=== PATIENT | female | born 1985 | race Caucasian/White ===

== ENCOUNTER → 2016-09-09 | Outpatient (CLI) | payer OTHER ==
[~2016-09-09] MED LIST: ASPI-586 PO; DOCU100C37 PO; HYDR-3720 PO; IBUP-1780 PO; METF1000 PO; OXYC-12 PO; OXYC-272 PO; OXYC-465 PO; PREN1TAB39 PO
--- NOTE | 2016-09-09 12:12 | Diagnostic Imaging Report ---
PROCEDURE: US Gallbladder. TECHNIQUE: Multiple real-time grayscale images were obtained over the right upper quadrant in various projections. INDICATION: Right upper quadrant pain. FINDINGS: The liver appeared normal. There is no intra-or extrahepatic bile duct dilatation. The visualized portions of the pancreas are normal. The unobstructed right kidney is normal. Portal venous flow in the normal hepatopetal direction. The gallbladder is normal, no stone or sludge. There is no ascites. IMPRESSION: Normal right upper quadrant ultrasound. Dictated by: Dictated on workstation # [id number]
== END ==
LOC: RAD 06:49
PROVIDERS: ATTEND Obstetrics & Gynecology
DX: R10.11 Right upper quadrant pain (principal)
CPT/HCPCS: 76705

== ENCOUNTER 2017-02-25 10:40 | Outpatient (CLI) | payer OTHER ==
[~2017-02-25] VITALS: Ht 180.3 cm; Wt 94.3 kg
[2017-02-25] MEDS ORDERED: PREN-37 PO (11:03)
[2017-02-25] MEDS ORDERED: ASPI-999 PO (11:03)
[2017-02-25] MEDS ORDERED: METF1000 PO (11:03)
--- NOTE | 2017-02-27 12:11 | Physician Query-Final Dx ---
DACIA CAM 02/27/17 1211: Clinic Account Progress/Dx Physician Query: Please give diagnosis Date of Service Feb 25, 2017 at 10:40 FROY RIVERA MD 02/28/17 0721: Clinic Account Progress/Dx DIAGNOSIS: Diagnosis false labor DACIA CAM Feb 27, 2017 12:11 FROY RIVERA MD Feb 28, 2017 07:21
== END 2017-02-25 12:25 | disposition home or self-care (01) ==
LOC: LDRP 10:40 → WSo 10:40
PROVIDERS: ATTEND Obstetrics & Gynecology
DX: O47.03 False labor before 37 completed weeks of gestation, third trimester (principal); Z3A.34 34 weeks gestation of pregnancy
CPT/HCPCS: 99214

== ENCOUNTER 2017-03-09 12:04 | Inpatient (IN) | payer OTHER ==
[~2017-03-09] VITALS: Ht 180.3 cm; Wt 95.7 kg
[2017-03-09 12:00] VITALS: BP 118/72
[~2017-03-09 12:04] MED LIST changes: +ASPI-999 PO; +PREN-37 PO
[2017-03-09] MEDS ORDERED: D5 LR IV SOLUTION 1,000 ML IV SCH ×2 (13:00→17:21)
[2017-03-09] MEDS ORDERED: LACTATED RINGERS 1,000 ML IV ONE ×2 (13:00→18:55)
[2017-03-09 13:02] LABS: BASOPHILS % (AUTO) 0 % (0-10); EOSINOPHILS % (AUTO) 0 % (0-10); LYMPHOCYTES # (AUTO) 1.6 X 10^3 (1.0-4.0); LYMPHOCYTES % (AUTO) 16 % (12-44); MEAN CORPUSCULAR HEMOGLOBIN 32 PG (25-34); MEAN CORPUSCULAR HGB CONC 34 G/DL (32-36); MEAN CORPUSCULAR VOLUME 95 FL (80-99); MEAN PLATELET VOLUME 13.4 FL (7.4-10.4); MONOCYTES # (AUTO) 0.8 X 10^3 (0.0-1.0); MONOCYTES % (AUTO) 8 % (0-12); NEUTROPHILS # (AUTO) 7.9 X 10^3 (1.8-7.8); NEUTROPHILS % (AUTO) 76 % (42-75); PLATELET COUNT 95 10^3/uL (130-400); RED BLOOD COUNT 3.39 10^6/uL (4.35-5.85); RED CELL DISTRIBUTION WIDTH 13.3 % (10.0-14.5); WHITE BLOOD COUNT 10.3 10^3/uL (4.3-11.0)
[2017-03-09 17:09] VITALS: BP 126/78
[2017-03-09] MEDS ORDERED: LACTATED RINGERS 1,000 ML IV PRN (17:09)
[2017-03-09] MEDS ORDERED: METOCLOPRAMIDE INJ 10 MG/2 ML (REGLAN) IV ONE (17:15)
[2017-03-09] MEDS ORDERED: CATHETER FLUSH 10 ML SYR IV PRN (17:15)
[2017-03-09] MEDS ORDERED: FAMOTIDINE 20MG/2ML IV (PEPCID) IV ONE (17:15)
[2017-03-09] MEDS ORDERED: CITRIC ACID/SOB CIT (BICITRA) 30 ML UDC PO ONE (17:15)
[2017-03-09] MEDS ORDERED: ONDANSETRON 4 MG/2 ML (SDV) Z0FRAN IVP PRN ×2 (17:30→23:00)
[2017-03-09] MEDS ORDERED: ceFAZolin INJECTION 2,000 MG in NS (IVPB) 50 ML IV NR (17:30)
[2017-03-09] MEDS ORDERED: TETANUS,DIPTH,PERTUSS P/F (BOOSTRIX) 0.5 ML VIAL IM ONE (17:30)
[2017-03-09] MEDS ORDERED: MEASLES,MUMPS,RUBELLA 1 EA INJ SC ONE (17:30)
[2017-03-09] MEDS ORDERED: metroNIDAZOLE 500MG/100ML IVPB 100 ML IV NR (17:30)
[2017-03-09] MEDS ORDERED: MEPERIDINE (DEMEROL) INJ 100 MG/ML IM PRN (17:30)
[2017-03-09] MEDS ORDERED: ceFAZolin 2 GM/50 ML NS 50 ML ONE (17:30)
[2017-03-09] MEDS ORDERED: PROMETHAZINE INJ 25 MG/ML (PHENERGAN) AMP IM PRN (17:30)
[2017-03-09] MEDS ORDERED: D5 LR IV SOLUTION 1,000 ML IV ONE (17:31)
--- NOTE | 2017-03-09 17:31 | History & Physical ---
History and Physical Date Seen by Provider: Mar 09, 2017 Time Seen by Provider: 17:26 this patient is a 30-year-old A2 white female with an EDC of 12 [id number] putting her at 36-4/7 weeks' gestation. She has been seen frequently over the last several weeks for threatened labor. She has had fairly regular persistent contractions that have been in the range of 6-8/h sometimes more sometime last and have been lasting less than 30 seconds. Today she felt like her contractions were given she was evaluated in clinic and found to be bulmaro every 4 minutes lasting 45 seconds or so per contraction. She was sent to labor and delivery for evaluation. After hydration she is bulmaro every 2-3 minutes lasting 60-90 seconds she is feeling fairly significant severe pain in the lower pelvis particularly along the scar area. Her is complicated by gestational diabetes for which she is on metformin and had has good effect on her blood sugars. She also has a history of thrombocytopenia platelet count up to this date has been in the 100 100s 6 range today it is 95 on admission is also complicated by mild oligohydramnios. Last ultrasound was performed within the last few days showed a estimated weight of 10 pounds and 9 ounces which is at the upper range of the normal range for that gestational age. This patient has a history of having had large babies. He has culture has been performed but report is not available as of yet. Patient denies ruptured membranes or bleeding. allergies are none Medications are vitamins metformin 500 mg twice a day and Atarax when necessary itching Past medical history, past surgical history, obstetric history, social histories and family histories are present primarily HEENT exam is normal Neck supple no lymphadenopathy in the thyromegaly Abdomen gravid fundal height is quite large measuring 41 cm the abdomen is nontender. Extremities show no clubbing cyanosis. There is no Homans sign. Pelvic exam in my clinic this morning showed a cervix that was fingertip to less than 1 cm but then at [address] Repeat exam just now showed a cervix that generous centimeter dilated and effaced over 90 percent. Membranes were intact presentation vertex. monitor shows contractions every 2 minutes lasting 60-90 seconds the heart rate pattern is reassuring Lab is as follows Laboratory Tests Test 03/09/17 12:20 Range/Units White Blood Count 10.3 4.3-11.0 10^3/uL Red Blood Count 3.39 L 4.35-5.85 10^6/uL Hemoglobin 10.9 L 11.5-16.0 G/DL Hematocrit 32 L 35-52 % Mean Corpuscular Volume 95 80-99 FL Mean Corpuscular Hemoglobin 32 25-34 PG Mean Corpuscular Hemoglobin Concent 34 32-36 G/DL Red Cell Distribution Width 13.3 10.0-14.5 % Platelet Count 95 L 130-400 10^3/uL Mean Platelet Volume 13.4 H 7.4-10.4 FL Neutrophils (%) (Auto) 76 H 42-75 % Lymphocytes (%) (Auto) 16 12-44 % Monocytes (%) (Auto) 8 0-12 % Eosinophils (%) (Auto) 0 0-10 % Basophils (%) (Auto) 0 0-10 % Neutrophils # (Auto) 7.9 H 1.8-7.8 X 10^3 Lymphocytes # (Auto) 1.6 1.0-4.0 X 10^3 Monocytes # (Auto) 0.8 0.0-1.0 X 10^3 Eosinophils # (Auto) 0.0 0.0-0.3 10^3/uL Basophils # (Auto) 0.0 0.0-0.1 10^3/uL assessment and plan labor at 36-4/7 weeks' gestation in a patient with 3 previous C-sections and complicated by oligohydramnios thrombocytopenia macrosomia and gestational diabetes.. Plan is for admission now and proceed with repeat delivery.patient understands implications for . She understands there is a possibility that her baby could require supportive care including enough to transfer to a intensive care unit. labor at 36-4/7 weeks gestation with previous 3 Allergies and Home Medications Allergies Coded Allergies: No Known Drug Allergies (Unverified , 10/16/09) Home Medications Aspirin 81 Mg Tab.chew, 81 MG PO DAILY, (Reported) Metformin HCl 1,000 Mg Tablet, 1,000 MG PO BID, (Reported) Vit/Iron Fumarate/FA 1 Each Tablet, 1 EACH PO DAILY, (Reported) Clinical Quality Measures DVT/VTE Risk/Contraindication: Risk Factor Score Per Nursin RFS Level Per Nursing on Admit: 1=Low/No VTE PPX FROY RIVERA MD Mar 09, 2017 5:31 pm
--- OUTSIDE RECORDS SUMMARY | 2017-03-09 17:36 | XMS REPORT | Continuity of Care Document ---
Author Author [facility] Organization [facility] Address Unknown Phone Unavailable Allergies Active Description Code Type Severity Reaction Onset Reported/Identified Relationship to Patient Clinical Status Yes No Known Drug Allergies [id number] Drug Allergy Unknown N/ A 10/16/2009 Medications Problems Date Dx Coded Attending Type Code Diagnosis Diagnosed By 03/20/2014 FROY RIVERA MD, Ot 632 MISSED 03/24/2014 CARMELINA KRISHNAMURTHY MD Ot V22.1 08/07/2014 CARMELINA KRISHNAMURTHY MD Ot V22.1 08/07/2014 FROY RIVERA MD Ot 632 08/07/2014 FROY RIVERA MD Ot V72.84 08/07/2014 FROY RIVERA MD Ot 632 MISSED 07/27/2015 FROY RIVERA MD, Ot O34.21 MATERNAL CARE FOR SCAR FROM PREVIOUS TAYLOR 07/27/2015 FROY RIVERA MD Ot Z01.818 ENCOUNTER FOR OTHER PREPROCEDURAL EXAMIN 07/27/2015 FROY RIVERA MD, Ot Z11.2 ENCOUNTER FOR SCREENING FOR OTHER BACTER 07/27/2015 CARMELINA KRISHNAMURTHY MD Ot V22.1 SUPERVIS OTH NORMAL PREG 07/27/2015 FROY RIVERA MD Ot 632 MISSED 07/27/2015 FROY RIVERA MD, Ot V72.84 EXAM PRE-OPERATIVE NOS 07/27/2015 FROY RIVERA MD, Ot 632 MISSED 07/27/2015 FROY RIVERA MD, Ot V72.84 EXAM PRE-OPERATIVE NOS 07/28/2015 FROY RIVERA MD Ot O34.21 MATERNAL CARE FOR SCAR FROM PREVIOUS TAYLOR 07/28/2015 FROY RIVERA MD, Ot Z01.818 ENCOUNTER FOR OTHER PREPROCEDURAL EXAMIN 07/28/2015 FROY RIVERA MD, Ot Z11.2 ENCOUNTER FOR SCREENING FOR OTHER BACTER 07/29/2015 FROY RIVERA MD, Ot D69.6 THROMBOCYTOPENIA, UNSPECIFIED 07/29/2015 FROY RIVERA MD, Ot O24.410 GESTATIONAL DIABETES MELLITUS IN PREGNAN 07/29/2015 FROY RIVERA MD, Ot O34.21 MATERNAL CARE FOR SCAR FROM PREVIOUS TAYLOR 07/29/2015 FROY RIVERA MD, Ot O99.12 OTH DIS OF THE BLD/BLD-FORM ORG/ IMMUN ME 07/29/2015 FROY RIVERA MD, Ot Z37.0 SINGLE LIVE 07/29/2015 FROY RIVREA MD, Ot Z3A.37 37 WEEKS GESTATION OF 09/06/2016 CARMELINA KRISHNAMURTHY MD Ot V22.1 SUPERVIS OTH NORMAL PREG 09/06/2016 FROY RIVERA MD, Ot 632 MISSED 09/06/2016 FROY RIVERA MD, Ot V72.84 EXAM PRE-OPERATIVE NOS 09/06/2016 FROY RIVERA MD, Ot 632 MISSED 09/06/2016 FROY RIVERA MD, Ot V72.84 EXAM PRE-OPERATIVE NOS 09/09/2016 CARMELINA KRISHNAMURTHY MD Ot V22.1 SUPERVIS OTH NORMAL PREG 09/09/2016 FROY RIVERA MD, Ot 632 MISSED 09/09/2016 FROY RIVERA MD, Ot V72.84 EXAM PRE-OPERATIVE NOS 09/09/2016 FROY RIVERA MD, Ot 632 MISSED 09/09/2016 FROY RIVERA MD, Ot V72.84 EXAM PRE-OPERATIVE NOS 10/05/2016 FROY RIVERA MD, Ot R10.11 RIGHT UPPER QUADRANT PAIN 03/01/2017 FROY RIVERA MD, Ot O47.03 FALSE LABOR BEFORE 37 COMPLETED WEEKS OF 03/01/2017 FROY RIVERA MD, Ot Z3A.34 34 WEEKS GESTATION OF Procedures Code Description Performed By Performed On [id number] EXTRACTION OF POC, LOW CERVICAL, OPEN AP 07/27/2015 Results Test Result Range Complete blood count (CBC) with automated white blood cell (WBC) differential - 03/09/17 12:20 Blood leukocytes automated count (number/volume) 10.3 10*3/ uL 4.3-11.0 Blood erythrocytes automated count (number/volume) 3.39 10*6 /uL 4.35-5.85 Venous blood hemoglobin measurement (mass/volume) 10.9 g/dL 11.5-16.0 Blood hematocrit (volume fraction) 32 % 35-52 Automated erythrocyte mean corpuscular volume 95 [foz_us] 80-99 Automated erythrocyte mean corpuscular hemoglobin (mass per erythrocyte) 32 pg 25-34 Automated erythrocyte mean corpuscular hemoglobin concentration measurement ( mass/volume) 34 g/dL 32-36 Automated erythrocyte distribution width ratio 13.3 % 10.0-14.5 Automated blood platelet count (count/volume) 95 10*3/uL 130-400 Automated blood platelet mean volume measurement 13.4 [foz_ us] 7.4-10.4 Automated blood neutrophils/100 leukocytes 76 % 42-75 Automated blood lymphocytes/100 leukocytes 16 % 12-44 Blood monocytes/100 leukocytes 8 % 0-12 Automated blood eosinophils/100 leukocytes 0 % 0-10 Automated blood basophils/100 leukocytes 0 % 0-10 Blood neutrophils automated count (number/volume) 7.9 10*3 1.8-7.8 Blood lymphocytes automated count (number/volume) 1.6 10*3 1.0-4.0 Blood monocytes automated count (number/volume) 0.8 10*3 0.0-1.0 Automated eosinophil count 0.0 10*3/uL 0.0-0.3 Automated blood basophil count (count/volume) 0.0 10*3/uL 0.0-0.1 Capillary blood glucose measurement by glucometer (mass/volume) - 03/09/17 17: 27 Capillary blood glucose measurement by glucometer (mass/volume) 91 mg/dL 70-110 Encounters ACCT No. Visit Date/Time Discharge Status Pt. Type Provider Facility Loc./Unit Complaint [id number] 02/25/2017 10:40:00 2016 12:25:00 DIS Outpatient FROY RIVERA MD [facility] WSo CONTRACTIONS/PRESSURE [id number] 09/09/2016 06:49:00 2016 23:59:59 CLS Outpatient FROY RIVERA MD [facility] RAD RUQ PAIN [id number] 07/31/2015 07:30:00 2015 23:59:59 CLS Preadmit RFOY RIVERA MD PREVIOUS SECTION [id number] 07/27/2015 15:15:00 2015 15:55:00 DIS Inpatient FROY RIVERA MD [facility] LDRP CONTRACTIONS [id number] 07/27/2015 13:17:00 2015 13:35:00 DIS Outpatient FROY RIVERA MD [facility] PREOP PREVIOUS SECTION [id number] 08/07/2014 06:16:00 2014 10:00:00 DIS Outpatient FROY RIVERA MD [facility] SDC MISSED [id number] 08/06/2014 05:53:00 2014 23:59:59 CLS Outpatient FROY RIVERA MD [facility] PREOP MISSED [id number] 03/20/2014 10:26:00 2013 15:10:00 DIS Outpatient FROY RIVERA MD [facility] SDC MISSED AB [id number] 03/19/2014 15:57:00 2013 23:59:59 CLS Outpatient FROY RIVERA MD [facility] PREOP MISSED AB [id number] 02/12/2014 14:44:00 2013 23:59:59 CLS Outpatient CARMELINA KRISHNAMURTHY MD [facility] RAD DATING [id number] 03/09/2017 17:10:00 ACT Inpatient FROY RIVERA MD [facility] LDRP LABOR
[2017-03-09 17:39] VITALS: BP 134/74
[2017-03-09] MEDS ORDERED: morphine PF (DURAMORPH) 10 MG/10 ML AMP ONE (17:39)
[2017-03-09] MEDS ORDERED: fentaNYL INJECTION 250 MCG/5 ML AMP ONE (17:40)
[2017-03-09] MEDS ORDERED: OXYTOCIN/NORMAL SALINE 500 ML IV ONE ×2 (18:34→18:40)
[2017-03-09] MEDS ORDERED: KETOROLAC 30 MG/ML VIAL ONE (18:34)
[2017-03-09] MEDS: KETOROLAC 30 MG/ML VIAL IVP SCH (18:50)
[2017-03-09] MEDS ORDERED: fentaNYL INJECTION 100 MCG/2 ML AMP INJ ONE (19:00)
[2017-03-09] MEDS ORDERED: ONDANSETRON 4 MG/2 ML (SDV) Z0FRAN IV PRN (19:00)
[2017-03-09] MEDS ORDERED: morphine PF (DURAMORPH) 10 MG/10 ML AMP INJ ONE (19:00)
[2017-03-09] MEDS ORDERED: NALOXONE 0.4 MG/ML 1 ML (NARCAN) VIAL IV PRN (19:00)
[2017-03-09] MEDS: OXYTOCIN/NORMAL SALINE 500 ML IV SCH (19:08)
[2017-03-09 20:00] VITALS: BP 123/80
[2017-03-09] MEDS ORDERED: morphine INJ 10 MG/ML 1ML (SYR OR VIAL) IVP PRN (23:00)
[2017-03-09] MEDS ORDERED: PROMETHAZINE INJ 25 MG/ML (PHENERGAN) AMP IVP PRN (23:00)
[2017-03-09] MEDS ORDERED: HYDROmorphone (DILAUDID) 2 MG/ML VIAL IVP PRN (23:00)
[2017-03-10 00:30] VITALS: BP 116/73
[2017-03-10] MEDS: KETOROLAC 30 MG/ML VIAL IVP SCH ×2 (00:30→06:24)
--- NOTE | 2017-03-10 01:16 | OPERATIVE REPORT ---
DATE OF SERVICE: 03/09/2017 PREOPERATIVE DIAGNOSES: labor at 36 and 4/7 weeks gestation with previous C-sections x3 and with gestational diabetes. POSTOPERATIVE DIAGNOSES: labor at 36 and 4/7 weeks gestation with previous C-sections x3 and with gestational diabetes. OPERATIVE PROCEDURE: Repeat low transverse delivery of a viable female with Apgars of 8 and 9, at 1 and 5 minutes respectively. Weight is 9 pounds and 10 ounces, time of 1826 and a cord blood pH of 7.34. OPERATIVE DESCRIPTION: With the patient in the supine position under satisfactory spinal anesthesia, she was prepped and draped in the usual fashion for abdominal surgery. Rogers catheter was placed in the urinary bladder. A repeat Pfannenstiel incision made through the skin with a scalpel at the patient's previous Pfannenstiel incisional scar. The abdomen was entered in the usual manner. Bladder retractor placed in to position and a clean scalpel used to make a 4 cm hysterotomy incision transversely across the lower uterine segment in the midst of a uterine window comprised of membranes and parietal peritoneum extending 6 to 8 cm across the lower uterine segment transversely and approximately 2.5 to 3 cm vertically. The copious clear fluid was released on hysterotomy. The incision was extended by blunt dissection. Then a vigorous viable female infant was delivered via the incision. had Apgars of 8 and 9, weight of 9 pounds 10 ounces and a time was 1826. The was bulb suctioned on delivery of the head and again on completion of delivery. The cord was doubly clamped and cut and the passed to Dr. Malone the vat skimmer in attendance for delivery. Cord bloods were obtained. The placenta delivered just spontaneously. was quite large, but normal with a 3-vessel cord. The uterus was exteriorized, the interior wiped clean with a wet laparotomy sponge. Uterine incision was closed with a running lock suture of 2-0 Vicryl. Hemostasis was satisfactory. The uterus was returned to the abdominal cavity. All blood clot and debris removed from the abdominal cavity. With sponge and needle counts correct hemostasis assured. The anterior prepped peritoneum was closed in a running suture of 2-0 Vicryl. Rectus muscles were closed with that suture as well. The rectus fascia was closed with 2-0 Vicryl, subcutaneous tissue with 2-0 Vicryl and the skin was stapled. Sponge and needle counts were correct on completion of the procedure. ESTIMATED BLOOD LOSS: Around 450 mL. The patient tolerated the procedure well and was transferred to the recovery room in stable condition. The infant had been taken stable to the full term nursery under the care of Dr. Malone. Job ID: [id number] DocumentID: [id number] Dictated Date: 03/09/2017 18:50:34 Fibrous Wallboard Inspector Date: 03/10/2017 01:15:50 Dictated By: FROY RIVERA MD
[2017-03-10 04:20] VITALS: BP 117/67
[2017-03-10] MEDS: OXYTOCIN/NORMAL SALINE 500 ML IV SCH (06:48)
--- NOTE | 2017-03-10 07:40 | Progress Note-Standard ---
Standard Progress Note Progress Notes/Assess & Plan Date Seen by Provider: Mar 10, 2017 Time Seen by Provider: 07:39 Progress/Assessment & Plan this patient is without complaint. She is ambulating, voiding, tolerating by mouth, has good pain control. Vital Signs Date Time Temp Pulse Resp B/P (MAP) Pulse Ox O2 Delivery O2 Flow Rate FiO2 03/10/17 04:20 98.1 86 18 117/67 (84) 96 03/10/17 00:30 96.9 99 16 116/73 (87) 99 Room Air 03/09/17 20:00 86 16 123/80 (94) Room Air 03/09/17 17:39 97 18 134/74 (94) 03/09/17 17:09 95 18 126/78 (94) 03/09/17 12:00 98.9 101 18 118/72 (87) vital signs are stable. Patient is afebrile. Fundus is firm below the umbilicus and nontender. Incision is clean dry and intact. Extreme show clubbing cyanosis. There is no Homans sign. There is some pretibial pitting edema that is normal. Assessment and plan postoperative day number 1 status post repeat doing well. Plan is for routine convalescence care FROY RIVERA MD Mar 10, 2017 7:40 am
[2017-03-10] MEDS: DOCUSATE SODIUM 100 MG (COLACE) CAP PO SCH ×2 (09:39→20:14)
[2017-03-10 09:41] VITALS: BP 110/69
--- NOTE | 2017-03-10 10:38 | Anesthesia-Regional Post-Op ---
Regional Patient Condition Mental Status: Alert, Oriented x3 Circulation: Same as Pre-Op Headache: Absent Sensation: Full Recovery Motor Block: Absent Post Op Complications Complications None Follow Up Care/Instructions Patient Instructions None needed. Anesthesia/Patient Condition Patient is doing well, no complaints, stable vital signs, no apparent adverse anesthesia problems. No complications reported per nursing. MARLEEN FLOR CRNA Mar 10, 2017 10:38
[2017-03-10] MEDS ORDERED: IBUPROFEN 800 MG (MOTRIN) TAB PO ONE (12:20)
[2017-03-10] MEDS: IBUPROFEN 800 MG (MOTRIN) TAB PO SCH ×3 (12:23→23:55)
[2017-03-10 12:24] VITALS: BP 107/68
[2017-03-10 13:55] VITALS: BP 104/62
[2017-03-10 18:00] VITALS: BP 103/69
[2017-03-10] MEDS: oxyCODONE/APAP 10/325MG (PERCOCET 10) TABLET PO PRN (20:14)
[2017-03-11 00:30] VITALS: BP 112/77
[2017-03-11] MEDS: oxyCODONE/APAP 10/325MG (PERCOCET 10) TABLET PO PRN ×4 (03:46→23:50)
[2017-03-11] MEDS: IBUPROFEN 800 MG (MOTRIN) TAB PO SCH ×4 (05:34→23:49)
[2017-03-11 06:10] VITALS: BP 111/67
--- NOTE | 2017-03-11 08:21 | Progress Note-Standard ---
Standard Progress Note Progress Notes/Assess & Plan Date Seen by Provider: Mar 11, 2017 Time Seen by Provider: 08:20 Progress/Assessment & Plan this patient is without complaint. She is ambulating, voiding, tolerating by mouth, has good pain control. Vital Signs Date Time Temp Pulse Resp B/P (MAP) Pulse Ox O2 Delivery O2 Flow Rate FiO2 03/10/17 04:20 98.1 86 18 117/67 (84) 96 03/10/17 00:30 96.9 99 16 116/73 (87) 99 Room Air 03/09/17 20:00 86 16 123/80 (94) Room Air 03/09/17 17:39 97 18 134/74 (94) 03/09/17 17:09 95 18 126/78 (94) 03/09/17 12:00 98.9 101 18 118/72 (87) vital signs are stable. Patient is afebrile. Fundus is firm below the umbilicus and nontender. Incision is clean dry and intact. Extreme show clubbing cyanosis. There is no Homans sign. There is some pretibial pitting edema that is normal. Assessment and plan postoperative day number 1 status post repeat doing well. Plan is for routine convalescence care March 11, 2017 Patient is without complaint. She is ambulating, voiding, tolerating by mouth, has good pain control. Vital Signs Date Time Temp Pulse Resp B/P (MAP) Pulse Ox O2 Delivery O2 Flow Rate FiO2 03/11/17 06:10 97.0 82 18 111/67 (82) 98 Room Air 03/11/17 00:30 97.4 98 18 112/77 (89) 98 Room Air 03/10/17 18:00 98.5 97 20 103/69 (80) 97 Room Air 03/10/17 13:55 99.4 100 18 104/62 (76) 98 Room Air 03/10/17 12:24 98.3 103 18 107/68 (81) 99 Room Air 03/10/17 09:41 99.1 94 18 110/69 (83) 98 Room Air vital signs are stable. Patient is afebrile. the abdomen is benign. Fundus is firm below the umbilicus nontender. Incision is clean dry and intact. Extreme show no clubbing cyanosis. There is no Homans sign. There is some pretibial pitting edema that is normal. Assessment and plan operative day number 2 status post repeat delivery doing well. Plan is to continue routine convalescence care and consider discharge tomorrow FROY RIVERA MD Mar 11, 2017 8:21 am
[2017-03-11] MEDS ORDERED: OXYC-465 PO (08:22)
[2017-03-11] MEDS ORDERED: DOCU100C37 PO (08:22)
[2017-03-11] MEDS ORDERED: IBUP-1780 PO (08:22)
--- NOTE | 2017-03-11 08:23 | Discharge Instructions ---
Discharge Instructions Discharge Medications New, Converted or Re-Newed RX: RX on Chart Patient Instructions Patient Instructions: as directed Return to The Hospital For: as directed Activity & Diet Discharge Diet: No Restrictions Activity as Tolerated: No Orders-Post D/C & Referrals Follow Up Appt: RTC on Friday, March 17, 2017 at 930 a.m. for incision check. Call to make follow up appt. for patient in 4 weeks. Wound Care: Remove gaurav, apply benzoin and steri strips. Activity Per routine post instructions. Please call in RX to patient pharmacy. Diet as tolerated Patient may shower or tub bathe as desired. Continue home meds FROY RIVERA MD Mar 11, 2017 8:23 am
[2017-03-11] MEDS: DOCUSATE SODIUM 100 MG (COLACE) CAP PO SCH ×2 (12:19→23:49)
[2017-03-11 18:33] VITALS: BP 118/77
[2017-03-11 23:50] VITALS: BP 115/72
[2017-03-12 06:05] VITALS: BP 103/69
[2017-03-12] MEDS: IBUPROFEN 800 MG (MOTRIN) TAB PO SCH ×2 (06:08→12:55)
[2017-03-12] MEDS: oxyCODONE/APAP 10/325MG (PERCOCET 10) TABLET PO PRN (06:08)
--- NOTE | 2017-03-12 08:27 | Discharge Summary ---
Discharge Summary this patient is a 31-year-old white female who was admitted at 36-4/7 weeks gestation secondary to labor. She had had previous C-sections 3. She was taken for repeat delivery due to labor. Delivery was uncomplicated patient recovered uneventfully. On postoperative day number 1 the patient is ambulating, voiding, tolerating by mouth well and good pain control. She had routine convalescence care through the day. On postoperative day number 2 patient again was ambulating well voiding well tolerating by mouth well had good pain control. Her baby is not ready for discharge home so she was kept another night. Now postoperative day number 3 patient is ambulating voiding tolerating by mouth well has good pain control and is requesting discharge home. Vital Signs Date Time Temp Pulse Resp B/P (MAP) Pulse Ox O2 Delivery O2 Flow Rate FiO2 03/12/17 06:05 97.6 83 18 103/69 (80) 99 Room Air 03/11/17 23:50 97.8 81 18 115/72 (86) 98 Room Air 03/11/17 18:33 97.7 89 18 118/77 (91) 99 Room Air 03/11/17 12:50 97.0 03/11/17 12:49 97.0 physical exam is unremarkable today. The abdomen is soft nontender nondistended. Fundus is firm below the umbilicus and nontender. the incision is clean dry and intact Extreme show clubbing cyanosis. There is no Homans sign. there is some pretibial Pitting edema that is normal. Principal diagnoses this hospitalization is repeat delivery due to labor Secondary diagnoses are labor, previous deliveries 3, Macrosomia Operation procedures include monitoring spinal anesthesia and repeat delivery Patient given appropriate discharge instructions verbally and writing was placed in chart. Discharge medications are Percocet and Motrin and Colace. 34-6/7 weeks' repeat due to labor Clinical Quality Measures DVT/VTE Risk/Contraindication: Risk Factor Score Per Nursin RFS Level Per Nursing on Admit: 1=Low/No VTE PPX FROY RIVERA MD Mar 12, 2017 8:27 am
[2017-03-12] MEDS: DOCUSATE SODIUM 100 MG (COLACE) CAP PO SCH (09:38)
[2017-03-12 09:53] VITALS: BP 108/72
== END 2017-03-12 14:00 | disposition home or self-care (01) | DRG 765 ==
LOC: WSo 12:04 → LDRP 12:05 → 3RD 12:57 → WSo 17:10 → LDRP 17:10
PROVIDERS: ADMIT Obstetrics & Gynecology; ATTEND Obstetrics & Gynecology
PROC: 10D00Z1 Extraction of Products of Conception, Low, Open Approach (ICD-10-PCS; principal; 2017-03-09 17:57)
DX: O60.14X0 Preterm labor third trimester with preterm delivery third trimester, not applicable or unspecified (principal); O41.03X0 Oligohydramnios, third trimester, not applicable or unspecified; O99.13 Other diseases of the blood and blood-forming organs and certain disorders involving the immune mechanism complicating the puerperium; D69.6 Thrombocytopenia, unspecified; O65.5 Obstructed labor due to abnormality of maternal pelvic organs; O66.2 Obstructed labor due to unusually large fetus; O24.425 Gestational diabetes mellitus in childbirth, controlled by oral hypoglycemic drugs; Z79.84 Long term (current) use of oral hypoglycemic drugs; O34.211 Maternal care for low transverse scar from previous cesarean delivery; Z3A.36 36 weeks gestation of pregnancy; Z37.0 Single live birth
CPT/HCPCS: 36415; 82962; 85025; 86850; 86900; 86901; 94664

== ENCOUNTER → 2018-02-06 | Outpatient (CLI) | payer BC ==
[~2018-02-06] MED LIST changes: +METF-399 PO; -METF1000 PO
--- NOTE | 2018-02-06 13:57 | Diagnostic Imaging Report ---
PROCEDURE: US Thyroid. TECHNIQUE: Multiple real-time grayscale images were obtained of the thyroid in various projections. INDICATION: Left thyroid nodule. COMPARISON: No prior studies are available for comparison. FINDINGS: Right lobe of the thyroid measures 5.6 x 1.5 x 2.1 cm and left lobe measures 5.3 x 1.4 x 1.7 cm. Both lobes demonstrate homogeneous echotexture. No discrete thyroid mass is detected. The isthmus is 3 mm in thickness. IMPRESSION: Mild thyroid enlargement. No discrete thyroid mass is detected. Dictated by: Dictated on workstation # [id number]
== END ==
LOC: RAD 10:44
PROVIDERS: ATTEND Obstetrics & Gynecology
DX: E04.1 Nontoxic single thyroid nodule (principal)
CPT/HCPCS: 76536

== ENCOUNTER 2018-09-28 11:15 | Emergency (ER) | payer BC ==
[~2018-09-28] VITALS: Ht 180.3 cm; Wt 90.7 kg
--- OUTSIDE RECORDS SUMMARY | 2018-09-28 11:20 | XMS REPORT | Continuity of Care Document ---
Author Organization Unknown Address Unknown Allergies Active Description Code Type Severity Reaction Onset Reported/Identified Relationship to Patient Clinical Status Yes NO KNOWN DRUG ALLERGIES UNKNOWN NO KNOWN DRUG ALLERG Yes No Known Drug Allergies [id number] Drug Allergy Unknown N/A 10/16/2009 Medications There is no data. Problems Date Dx Coded Attending Type Code Diagnosis Diagnosed By 03/20/2014 FROY RIVERA MD, Ot 632 MISSED 03/24/2014 CARMELINA KRISHNAMURTHY MD Ot V22.1 08/07/2014 CARMELINA KRISHNAUMRTHY MD Ot V22.1 08/07/2014 FROY RIVERA MD, Ot 632 08/07/2014 FROY RIVERA MD, Ot V72.84 08/07/2014 FROY RIVERA MD, Ot 632 MISSED 07/27/2015 FROY RIVERA MD, Ot O34.21 MATERNAL CARE FOR SCAR FROM PREVIOUS TAYLOR 07/27/2015 FROY RIVERA MD Ot Z01.818 ENCOUNTER FOR OTHER PREPROCEDURAL EXAMIN 07/27/2015 FROY RIVERA MD, Ot Z11.2 ENCOUNTER FOR SCREENING FOR OTHER BACTER 07/27/2015 CARMELINA KRISHNAMURTHY MD Ot V22.1 SUPERVIS OTH NORMAL PREG 07/27/2015 FROY RIVERA MD, Ot 632 MISSED 07/27/2015 FROY RIVERA MD, Ot V72.84 EXAM PRE-OPERATIVE NOS 07/27/2015 FROY RIVERA MD, Ot 632 MISSED 07/27/2015 FROY RIVERA MD, Ot V72.84 EXAM PRE-OPERATIVE NOS 07/28/2015 FROY RIVERA MD, Ot O34.21 MATERNAL CARE [...] Ot O99.12 OTH DIS OF THE BLD/BLD-FORM ORG/IMMUN ME 07/29/2015 FROY RIVERA MD, Ot Z37.0 SINGLE LIVE 07/29/2015 FROY RIVERA MD, Ot Z3A.37 37 WEEKS GESTATION OF [...] MD, Ot R10.11 RIGHT UPPER QUADRANT PAIN 02/25/2017 FROY RIVERA MD, Ot O47.03 FALSE LABOR BEFORE 37 COMPLETED WEEKS OF 02/25/2017 FROY RIVERA MD, Ot Z3A.34 34 WEEKS GESTATION OF 03/01/2017 FROY RIVERA MD, Ot O47.03 FALSE LABOR BEFORE 37 COMPLETED WEEKS OF 03/01/2017 FROY RIVERA MD, Ot Z3A.34 34 WEEKS GESTATION OF 03/12/2017 FROY RIVERA MD, Ot D69.6 THROMBOCYTOPENIA, UNSPECIFIED 03/12/2017 FROY RIVERA MD, Ot O24.425 GESTATNL DIAB IN [facility], CTRL BY ORAL 03/12/2017 FROY RIVERA MD, Ot O34.211 MATERN CARE FOR LOW TRANSVERSE SCAR FROM 03/12/2017 FROY RIVERA MD, Ot O41.03X0 OLIGOHYDRAMNIOS, THIRD TRIMESTER, NOT AP 03/12/2017 FROY RIVERA MD, Ot O60.14X0 LABOR THIRD TRI W DELIVE 03/12/2017 FROY RIVERA MD, Ot O65.5 OBSTRUCTED LABOR DUE TO ABNLT OF MATERNA 03/12/2017 FROY RIVERA MD, Ot O66.2 OBSTRUCTED LABOR DUE TO UNUSUALLY LARGE 03/12/2017 FROY RIVERA MD, Ot O99.13 OTH DIS OF THE BLD/BLD-FORM ORG/IMMUN ME 03/12/2017 FROY RIVERA MD, Ot Z37.0 SINGLE LIVE 03/12/2017 FROY RIVERA MD, Ot Z3A.36 36 WEEKS GESTATION OF 03/12/2017 FROY RIVERA MD, Ot Z79.84 SKILLED NURSING (CURRENT) USE OF ORAL HYPOGLYC 04/16/2017 RAGHU SCHMID, CARMELINA Thomas Ot V22.1 SUPERVIS OTH NORMAL PREG 04/16/2017 FROY RIVERA MD, Ot 632 MISSED 04/16/2017 FROY RIVERA MD, Ot V72.84 EXAM PRE-OPERATIVE NOS 04/16/2017 FROY RIVERA MD, Ot 632 MISSED 04/16/2017 FROY RIVERA MD, Ot V72.84 EXAM PRE-OPERATIVE NOS 04/16/2017 FROY RIVERA MD, Ot R10.11 RIGHT UPPER QUADRANT PAIN 12/15/2017 RAGHU SCHMID, CARMELINA Thomas Ot V22.1 SUPERVIS OTH NORMAL PREG 12/15/2017 FROY RIVERA MD, Ot 632 MISSED 12/15/2017 FROY RIVERA MD, Ot V72.84 EXAM PRE-OPERATIVE NOS 12/15/2017 FROY RIVERA MD Ot 632 MISSED 12/15/2017 FROY RIVERA MD, Ot V72.84 EXAM PRE-OPERATIVE NOS 12/15/2017 FROY RIVERA MD, Ot R10.11 RIGHT UPPER QUADRANT PAIN 02/07/2018 FROY RIVERA MD, Ot E04.1 NONTOXIC SINGLE THYROID NODULE 05/17/2018 RAGHU SCHMID, CARMELINA Thomas Ot V22.1 SUPERVIS OTH NORMAL PREG 05/17/2018 FROY RIVERA MD Ot 632 MISSED 05/17/2018 FROY RIVERA MD, Ot V72.84 EXAM PRE-OPERATIVE NOS 05/17/2018 FROY RIVERA MD Ot 632 MISSED 05/17/2018 FROY RIVERA MD, Ot V72.84 EXAM PRE-OPERATIVE NOS 05/17/2018 FROY RIVERA MD Ot R10.11 RIGHT UPPER QUADRANT PAIN 05/17/2018 FROY RIVERA MD, Ot E04.1 NONTOXIC SINGLE THYROID NODULE Procedures Code Description Performed By Performed On 64U30L3 EXTRACTION OF POC, LOW CERVICAL, OPEN AP 07/27/201599L98X5 EXTRACTION OF POC, LOW CERVICAL, OPEN AP 03/09/2017 Results Test Result Range Thyroid Stimulating Hormone - 04/07/16 09:34 TSH 0.75 mIU/mL 0.32-5.00 Complete blood count (CBC) with automated white blood cell (WBC) differential - 03/09/17 12:20 Blood leukocytes automated count (number/volume) 10.3 10*3/uL 4.3-11.0 Blood erythrocytes automated count (number/volume) 3.39 10*6/uL 4.35-5.85 Venous blood hemoglobin measurement (mass/volume) 10.9 g/dL 11.5-16.0 Blood hematocrit (volume fraction) 32 % 35-52 Automated erythrocyte mean corpuscular volume 95 [foz_us] 80-99 Automated erythrocyte mean corpuscular hemoglobin (mass per erythrocyte) 32 pg 25-34 Automated erythrocyte mean corpuscular hemoglobin concentration measurement (mass/volume) 34 g/dL 32-36 Automated erythrocyte distribution width ratio 13.3 % 10.0- 14.5 Automated blood platelet count (count/volume) 95 10*3/uL 130- 400 Automated blood platelet mean volume measurement 13.4 [foz_us] 7.4-10.4 Automated blood neutrophils/100 leukocytes 76 % 42-75 Automated blood lymphocytes/100 leukocytes 16 % 12-44 Blood monocytes/100 leukocytes 8 % 0-12 Automated blood eosinophils/100 leukocytes 0 % 0-10 Automated blood basophils/100 leukocytes 0 % 0-10 Blood neutrophils automated count (number/volume) 7.9 10*3 1.8-7.8 Blood lymphocytes automated count (number/volume) 1.6 10*3 1.0-4.0 Blood monocytes automated count (number/volume) 0.8 10*3 0.0- 1.0 Automated eosinophil count 0.0 10*3/uL 0.0-0.3 Automated blood basophil count (count/volume) 0.0 10*3/uL 0.0-0.1 Blood type T Indirect antibody screen panel - 03/09/17 12:20 ABO+Rh group OP NRG Transfusion band number [id number] Blood group antibody screen NEGATIVE NR Capillary blood glucose measurement by glucometer (mass/volume) - 03/09/17 17:27 Capillary blood glucose measurement by glucometer (mass/volume) 91 mg/dL 70-110 Lipid Panel - 03/23/17 10:02 C/HDL 4.4 3.7-6.7 Cholesterol 288 mg/dL 100-240 HDL 66 mg/dL 30-85 LDL-Calculated 195 mg/dL 0-100 Trig 136 mg/dL 35-160 VLDL 27 mg/dL 0-42 Encounters ACCT No. Visit Date/Time Discharge Status Pt. Type Provider Facility Loc./Unit Complaint [id number] 02/06/2018 10:44:00 02/06/2018 23:59:59 CLS Outpatient NICOLE SCHMID, FROY [facility] RAD LT THYROID NODULE [id number] 01/19/2018 12:00:00 01/19/2018 23:59:59 CLS Preadmit FROY RIVERA MD [facility] RAD LT THYROID NODULE [id number] 12/12/2017 11:52:00 12/12/2017 23:59:59 CLS Preadmit SHARON MORRIS DO [facility] RAD ABDOMINAL PAIN [id number] 03/09/2017 17:10:00 03/12/2017 14:00:00 DIS Inpatient FROY RIVERA MD [facility] LDRP LABOR [id number] 02/25/2017 10:40:00 02/25/2017 12:25:00 DIS Outpatient FROY RIVERA MD [facility] WSo CONTRACTIONS/PRESSURE [id number] 09/09/2016 06:49:00 09/09/2016 23:59:59 CLS Outpatient FROY RIVERA MD [facility] RAD RUQ PAIN [id number] 07/31/2015 07:30:00 07/31/2015 23:59:59 CLS Preadmit FROY RIVERA MD PREVIOUS SECTION [id number] 07/27/2015 15:15:00 07/29/2015 15:55:00 DIS Inpatient FROY RIVERA MD [facility] LDRP CONTRACTIONS [id number] 07/27/2015 13:17:00 07/27/2015 13:35:00 DIS Outpatient FROY RIVERA MD [facility] PREOP PREVIOUS SECTION [id number] 08/07/2014 06:16:00 08/07/2014 10:00:00 DIS Outpatient FROY RIVERA MD [facility] SDC MISSED [id number] 08/06/2014 05:53:00 08/06/2014 23:59:59 CLS Outpatient FROY RIVERA MD [facility] PREOP MISSED [id number] 03/20/2014 10:26:00 03/20/2014 15:10:00 DIS Outpatient FROY RIVERA MD [facility] SDC MISSED AB [id number] 03/19/2014 15:57:00 03/19/2014 23:59:59 CLS Outpatient FROY RIVERA MD [facility] PREOP MISSED AB [id number] 02/12/2014 14:44:00 02/12/2014 23:59:59 CLS Outpatient CARMELINA KRISHNAMURTHY MD [facility] RAD DATING [id number] 08/07/2014 06:23:01 ACT Document Registration [id number] 03/23/2017 09:57:00 03/23/2017 23:59:00 DIS Outpatient Martina Tay [id number] 04/07/2016 09:29:00 04/07/2016 23:59:00 DIS Outpatient Martina Tay
[2018-09-28 12:16] LABS: BASOPHILS % (AUTO) 0 % (0-10); EOSINOPHILS % (AUTO) 1 % (0-10); HEMATOCRIT 34 % (35-52); HEMOGLOBIN 10.9 G/DL (11.5-16.0); LYMPHOCYTES # (AUTO) 1.3 X 10^3 (1.0-4.0); LYMPHOCYTES % (AUTO) 21 % (12-44); MEAN CORPUSCULAR HEMOGLOBIN 29 PG (25-34); MEAN CORPUSCULAR HGB CONC 32 G/DL (32-36); MEAN CORPUSCULAR VOLUME 90 FL (80-99); MEAN PLATELET VOLUME 11.7 FL (7.4-10.4); MONOCYTES # (AUTO) 0.5 X 10^3 (0.0-1.0); MONOCYTES % (AUTO) 8 % (0-12); NEUTROPHILS # (AUTO) 4.2 X 10^3 (1.8-7.8); NEUTROPHILS % (AUTO) 70 % (42-75); PLATELET COUNT 194 10^3/uL (130-400); RED CELL DISTRIBUTION WIDTH 14.8 % (10.0-14.5)
[2018-09-28 12:29] LABS: PROTHROMBIN TIME PATIENT 13.4 SEC (12.2-14.7)
[2018-09-28 12:36] LABS: ALANINE AMINOTRANSFERASE 11 U/L (0-55); ALBUMIN 4.6 GM/DL (3.2-4.5); ALKALINE PHOSPHATASE 72 U/L (40-136); BILIRUBIN,TOTAL 0.3 MG/DL (0.1-1.0); BUN/CREATININE RATIO 13; CALCIUM 9.8 MG/DL (8.5-10.1); CARBON DIOXIDE 23 MMOL/L (21-32); CHLORIDE 105 MMOL/L (98-107); CREATININE SERUM 0.86 MG/DL (0.60-1.30); GFR ESTIMATED > 60; GLUCOSE 155 MG/DL (70-105); MAGNESIUM 2.3 MG/DL (1.8-2.4); POTASSIUM 3.7 MMOL/L (3.6-5.0); SODIUM 138 MMOL/L (135-145); TOTAL PROTEIN 7.7 GM/DL (6.4-8.2)
--- NOTE | 2018-09-28 12:51 | Diagnostic Imaging Report ---
CHEST 1 VIEW, AP/PA ONLY Indication: Chest pain Comparison: None available. Findings: No focal airspace disease in the visualized lungs. Please note that the posterior lower lobes are poorly evaluated by portable radiography. No pleural effusion or pneumothorax. Normal cardiomediastinal silhouette. Impression: No acute cardiopulmonary process by portable radiography. Dictated by: Dictated on workstation # [id number]
--- NOTE | 2018-09-28 13:19 | NUR ---
IN ROOM AT THIS TIME.
--- NOTE | 2018-09-28 13:26 | ED Chest Pain ---
General Chief Complaint: Chest Pain Stated Complaint: ANXIETY Nursing Triage Note: Pt sent to ED by from on-site care at work. Pt reports chest tightness/discomfort for three weeks. Pt reports heart feels like it going to beat out of chest. Pt c/o tingling in extremities and reports, "I just don't feel right." Nursing Sepsis Screen: No Definite Risk [place]: [place], [place] [place] Exam Limitations: no limitations History of Present Illness Date Seen by Provider: Sep 28, 2018 Time Seen by Provider: 11:26 Initial Comments This 32-year-old young lady presents to the emergency room with complaints of chest pain. She was [place] to the emergency room [place] [facility] [place] She has associated palpitations but denies any significant shortness of breath. This has been ongoing for about 2 weeks. She characterizes her chest discomfort as pressure or tightness. She is nauseated without vomiting. She does not seem to have any particular exacerbating or alleviating factors. The urgent care clinic and notes some nonspecific T-wave changes. Patient has been tachycardic with a heart rate in the one teens at urgent care. Patient notes a tingling sensation from the head to the toes earlier in the day. She has had some discomfort radiating to the left shoulder. She rates the pain as 2 or 3 out of 10 on the pain scale. She denies any cough or fever. She does not smoke. She denies any drug or alcohol use. She reports increased stress in her life recently. Allergies and Home Medications Allergies Coded Allergies: No Known Drug Allergies (Unverified , 10/16/09) Home Medications Aspirin 81 Mg Tab.chew, 81 MG PO DAILY, (Reported) Docusate Sodium 100 Mg Capsule, 100 MG PO BID Prescribed by: FROY WESTFALL on 03/11/17821 Ibuprofen 800 Mg Tablet, 800 MG PO Q6H Prescribed by: FROY WESTFALL on 03/11/17821 Oxycodone HCl/Acetaminophen 1 Each Tablet, 1-2 TAB PO Q4HR PRN for PAIN-MODERATE TO SEVERE Prescribed by: FROY WESTFALL on 03/11/17821 Vit/Iron Fumarate/FA 1 Each Tablet, 1 EACH PO DAILY, (Reported) Patient Home Medication List Home Medication List Reviewed: Yes Review of Systems Review of Systems Constitutional: no symptoms reported EENTM: No Symptoms Reported Respiratory: No Symptoms Reported Cardiovascular: See HPI Gastrointestinal: See HPI Genitourinary: No Symptoms Reported Musculoskeletal: no symptoms reported Skin: no symptoms reported Psychiatric/Neurological: See HPI Endocrine: No Symptoms Reported Hematologic/Lymphatic: No Symptoms Reported Past Pcqhnls-Zwwczs-Axmppy Hx Past Med/Social Hx: Reviewed and Corrections made Patient Social History Recent Foreign Travel: No Contact w/Someone Who Travel: No Recent Infectious Disease Expo: No Recent Hopitalizations: Yes Immunizations Up To Date PED Vaccines UTD: Yes Date of Influenza Vaccine: Feb 03, 2017 Seasonal Allergies Seasonal Allergies: No Past Medical History Surgeries: Yes (colonoscopy in 2002 and bunion 1998, c\\section x4, D&Cx2) Section, Orthopedic Respiratory: No Cardiac: No Neurological: No Last Menstrual Period: Sep 16, 2018 Reproductive Disorders: Yes (SPONTANEOUS ABORTIONS) Female Reproductive Disorders: Denies Sexually Transmitted Disease: No HIV/AIDS: No Genitourinary: No Gastrointestinal: No Musculoskeletal: No Endocrine: Yes (gestational diabetes) HEENT: No Loss of Vision: Denies Hearing Impairment: Denies Cancer: No Psychosocial: No Integumentary: No Blood Disorders: Yes (THROMBOCYTOPENIA w 4 ) Adverse Reaction/Blood Tranf: No Family Medical History Reviewed Nursing Family Hx Thyroid disease 19 FATHER Physical Exam Vital Signs Vital Signs - First Documented 09/28/18 11:32 Temp 98.7 Pulse 104 Resp 18 B/P (MAP) 130/98 (109) Pulse Ox 98 O2 Delivery Room Air Capillary Refill : Less Than 3 Seconds Height, Weight, BMI Height: 5'11.00" Weight: 200lbs. 0.0oz. 90.410984of; 29.4 BMI Method:Stated General Appearance: No Apparent Distress, WD/WN HEENT: PERRL/EOMI, Normal ENT Inspection Neck: Normal Inspection Respiratory: Chest Non Tender, Lungs Clear, Normal Breath Sounds, No Accessory Muscle Use, No Respiratory Distress Cardiovascular: Regular Rate, Rhythm, No Edema, No Murmur, Normal Peripheral Pulses Gastrointestinal: Normal Bowel Sounds, Non Tender, Soft Extremity: Normal Inspection, Non Tender, No Calf Tenderness, No Pedal Edema, Other (Negative Moises) Neurologic/Psychiatric: Alert, Oriented x3, No Motor/Sensory Deficits, Normal Mood/Affect, crystal cutter II-XII Norm as Tested Skin: Normal Color, Warm/Dry Progress/Results/Core Measures Results/Orders Lab Results Laboratory Tests Test 09/28/18 12:05 Range/Units White Blood Count 6.0 4.3-11.0 10^3/uL Red Blood Count 3.83 L 4.35-5.85 10^6/uL Hemoglobin 10.9 L 11.5-16.0 G/DL Hematocrit 34 L 35-52 % Mean Corpuscular Volume 90 80-99 FL Mean Corpuscular Hemoglobin 29 25-34 PG Mean Corpuscular Hemoglobin Concent 32 32-36 G/DL Red Cell Distribution Width 14.8 H 10.0-14.5 % Platelet Count 194 130-400 10^3/uL Mean Platelet Volume 11.7 H 7.4-10.4 FL Neutrophils (%) (Auto) 70 42-75 % Lymphocytes (%) (Auto) 21 12-44 % Monocytes (%) (Auto) 8 0-12 % Eosinophils (%) (Auto) 1 0-10 % Basophils (%) (Auto) 0 0-10 % Neutrophils # (Auto) 4.2 1.8-7.8 X 10^3 Lymphocytes # (Auto) 1.3 1.0-4.0 X 10^3 Monocytes # (Auto) 0.5 0.0-1.0 X 10^3 Eosinophils # (Auto) 0.0 0.0-0.3 10^3/uL Basophils # (Auto) 0.0 0.0-0.1 10^3/uL Prothrombin Time 13.4 12.2-14.7 SEC INR Comment 1.0 0.8-1.4 Activated Partial Thromboplast Time 27 24-35 SEC D-Dimer 0.33 0.00-0.49 UG/ML Sodium Level 138 135-145 MMOL/L Potassium Level 3.7 3.6-5.0 MMOL/L Chloride Level 105 98-107 MMOL/L Carbon Dioxide Level 23 21-32 MMOL/L Anion Gap 10 5-14 MMOL/L Blood Urea Nitrogen 11 7-18 MG/DL Creatinine 0.86 0.60-1.30 MG/DL Estimat Glomerular Filtration Rate > 60 BUN/Creatinine Ratio 13 Glucose Level 155 H 70-105 MG/DL Calcium Level 9.8 8.5-10.1 MG/DL Corrected Calcium 8.5-10.1 MG/DL Magnesium Level 2.3 1.8-2.4 MG/DL Total Bilirubin 0.3 0.1-1.0 MG/DL Aspartate Amino Transf (AST/SGOT) 9 5-34 U/L Alanine Aminotransferase (ALT/SGPT) 11 0-55 U/L Alkaline Phosphatase 72 40-136 U/L Myoglobin 19.9 10.0-92.0 NG/ML Troponin I < 0.028 <0.028 NG/ML Total Protein 7.7 6.4-8.2 GM/DL Albumin 4.6 H 3.2-4.5 GM/DL Serum Test, Qualitative NEGATIVE NEGATIVE My Orders Orders - JONAS VÁZQUEZ MD Cbc With Automated Diff (09/28/18 11:26) Magnesium (09/28/18 11:26) Chest 1 View, Ap/Pa Only (09/28/18 11:26) Ekg Tracing (09/28/18 11:26) Cardiac Profile 1 (09/28/18 11:26) Comprehensive Metabolic Panel (09/28/18 11:26) Myoglobin Serum (09/28/18 11:26) Protime With Inr (09/28/18 11:26) Partial Thromboplastin Time (09/28/18 11:26) O2 (09/28/18 11:26) Monitor-Rhythm Ecg Trace Only (09/28/18 11:26) Ed Iv/Invasive Line Start (09/28/18 11:26) Fibrin Degradation Products (09/28/18 11:26) Hcg,Qualitative Serum (09/28/18 11:26) Vital Signs/I&O 09/28/18 09/28/18 11:32 13:45 Temp 98.7 Pulse 104 81 Resp 18 16 B/P (MAP) 130/98 (109) 124/82 (96) Pulse Ox 98 98 O2 Delivery Room Air Room Air Blood Pressure Mean: 109 Progress Progress Note : Progress Note Workup was unremarkable. Patient was symptom free at the time of dismissal. Possible causes of her chest pain could be anxiety and or acid reflux. She intends to trial antacid therapy. See discharge instructions. Initial ECG Impression Date: Sep 28, 2018 Initial ECG Impression Time: 12:03 Initial ECG Rate: 95 Initial ECG Rhythm: Normal Sinus Comment Sinus rhythm with no ST elevation or depression. Borderline tachycardic rate. Borderline LVH. No abnormal intervals. Diagnostic Imaging Diagonstic Imaging: Xray Plain Films/CT/US/NM/MRI: chest Comments Chest x-ray viewed by me and report reviewed. See report below: NAME: LUTHER MARS [facility] REC#: [id number] PT STATUS: REG ER : 1985 PHYSICIAN: JONAS VÁZQUEZ MD ADMIT DATE: 09/28/18/ER Signed Date of Exam: 09/28/18 CHEST 1 VIEW, AP/PA ONLY Indication: Chest pain Comparison: None available. Findings: No focal airspace disease in the visualized lungs. Please note that the posterior lower lobes are poorly evaluated by portable radiography. No pleural effusion or pneumothorax. Normal cardiomediastinal silhouette. Impression: No acute cardiopulmonary process by portable radiography. Dictated by: Dictated on workstation # [id number] Dict: 09/28/18 1248 Trans: 09/28/18 1249 Interpreted by: MALINI CUELLO MD Electronically signed by: MALINI CUELLO MD 09/28/18 1249 Departure Impression Primary Impression: Atypical chest pain Disposition: 01 HOME, SELF-CARE Condition: Improved Departure-Patient Inst. Decision time for Depature: 13:24 Referrals: CLAUDIA FINNEY MD (PCP/Family) Primary Care Physician Patient Instructions: Chest Pain That Is Not Caused by the Heart (DC) Add. Discharge Instructions: Follow-up with your primary care provider soon as possible. You may try an antacid medication such as Pepcid (famotidine) 20 mg twice daily or omeprazole 20 mg twice daily for a couple of weeks. If your pain is caused by heartburn, avoiding the following may be helpful: Eating large meals, eating close to bedtime, caffeine, carbonation, chocolate, citrus fruits and juices, alcohol, tobacco, mints, spicy foods, tomato products, NSAID medications such as ibuprofen or naproxen, fatty or greasy foods, or anything else you know irritates your stomach or causes heartburn. Return to the emergency room if you have worsening symptoms. All discharge instructions reviewed with patient and/or family. Voiced understanding. Copy Copies To 1: CLAUDIA FINNEY MD, JOSHUA T MD Sep 28, 2018 13:26
[2018-09-28 13:45] VITALS: BP 124/82
== END 2018-09-28 13:45 | disposition home or self-care (01) ==
LOC: EDUNIT# 11:15 → ER 11:16
DX: R07.9 Chest pain, unspecified (principal); Z79.82 Long term (current) use of aspirin; Z98.890 Other specified postprocedural states; Z87.59 Personal history of other complications of pregnancy, childbirth and the puerperium
CPT/HCPCS: 36415; 71045; 80053; 83735; 83874; 84484; 84703; 85025; 85379; 85610; 85730; 93005; 93041

== ENCOUNTER 2020-04-12 05:20 | Inpatient (IN) | payer BC ==
[2020-04-12] VITALS (18 sets, daily range): BP systolic 99–133; BP diastolic 53–86
[~2020-04-12] VITALS: Ht 180.3 cm; Wt 217.8 kg
[~2020-04-12 05:20] MED LIST changes: -OXYC-465 PO; +OXYC-556 PO
[2020-04-12 06:01] LABS: BILIRUBIN,URINE NEGATIVE (NEGATIVE); CLARITY,URINE CLEAR; COLOR,URINE YELLOW; GLUCOSE, URINE (UA) NEGATIVE (NEGATIVE); KETONES,URINE TRACE (NEGATIVE); LEUKOCYTE ESTERASE ,URINE NEGATIVE (NEGATIVE); NITRITE,URINE NEGATIVE (NEGATIVE); PROTEIN,URINE NEGATIVE (NEGATIVE)
[2020-04-12 06:26] LABS: BACTERIA,URINE TRACE /HPF; WBC,URINE 0-2 /HPF
[2020-04-12] MEDS ORDERED: LACTATED RINGERS 1,000 ML IV ONE (06:52)
[2020-04-12] MEDS ORDERED: FAMOTIDINE 20MG/2ML IV (PEPCID) IV ONE (07:15)
[2020-04-12] MEDS ORDERED: metroNIDAZOLE 500MG/100ML IVPB 100 ML IV ONE ×2 (07:15)
[2020-04-12] MEDS ORDERED: D5 LR IV SOLUTION 1,000 ML IV SCH ×2 (07:15→09:00)
[2020-04-12] MEDS ORDERED: CITRIC ACID/SOB CIT (BICITRA) 30 ML UDC PO ONE (07:15)
[2020-04-12] MEDS ORDERED: METOCLOPRAMIDE INJ 10 MG/2 ML (REGLAN) IV ONE (07:15)
[2020-04-12] MEDS ORDERED: ceFAZolin 2 GM IV Premixed 50 ML IV ONE (07:15)
[2020-04-12] MEDS ORDERED: ceFAZolin INJECTION 2,000 MG in WATER (STERILE) FOR INJECTION 10 ML IV ONE (07:15)
[2020-04-12] MEDS ORDERED: CATHETER FLUSH 10 ML SYR IV PRN (07:15)
[2020-04-12] MEDS ORDERED: LACTATED RINGERS 1,000 ML IV PRN (07:15)
--- NOTE | 2020-04-12 07:15 | History & Physical ---
History and Physical Date Seen by Provider: Apr 12, 2020 Time Seen by Provider: 07:12 This patient is a 34-year-old multigravid white female currently at 36 weeks gestation who presents in labor. Her is complicated by gestational diabetes controlled with Metformin 1000 mg twice a day. She denies rupture membranes or bleeding. She is having regular contractions every 3 minutes and has had one episode of heart rate deceleration with late decelerations. She is admitted now for repeat delivery Allergies are none Medications are vitamins and Metformin 1000 mg twice a day Medical social and surgical history is all per the antepartum record HEENT exam is normal Neck is supple no lymphadenopathy no thyromegaly Abdomen is gravid soft nontender nondistended Extremities show no clubbing or cyanosis. There is no Homans' sign. Pelvic exam is deferred Assessment and plan 36 weeks gestation and a multigravid white female with 4 previous . Patient is admitted now and will proceed with delivery 36 weeks with 4 previous C-sections and history of gestational diabetes on Metformin and now in labor Allergies and Home Medications Allergies Coded Allergies: No Known Drug Allergies (Unverified , 10/16/09) Home Medications Aspirin 81 Mg Tab.chew, 81 MG PO DAILY, (Reported) Docusate Sodium 100 Mg Capsule, 100 MG PO BID Prescribed by: FROY WESTFALL on 03/11/17821 Ibuprofen 800 Mg Tablet, 800 MG PO Q6H Prescribed by: FROY WESTFALL on 03/11/17821 Oxycodone HCl/Acetaminophen 1 Each Tablet, 1-2 TAB PO Q4HR PRN for PAIN-MODERATE TO SEVERE Prescribed by: FROY WESTFALL on 03/11/17 08 Vit/Iron Fumarate/FA 1 Each Tablet, 1 EACH PO DAILY, (Reported) Patient Home Medication List Home Medication List Reviewed: Yes FROY RIVERA MD Apr 12, 2020 07:15
[2020-04-12] MEDS ORDERED: IBUP-1780 PO (07:24)
[2020-04-12] MEDS ORDERED: DOCU100C37 PO (07:24)
[2020-04-12] MEDS ORDERED: OXYC-556 PO (07:24)
--- NOTE | 2020-04-12 07:25 | Discharge Inst-Surgical ---
Discharge Inst-Surgical Depart Medication/Instructions New, Converted or Re-Newed RX: RX on Chart Consults/Follow Up Patient Instructions: As directed Orders & Referrals Follow Up Appt: RTC 1 week for incision check. Call to make follow up appt. for patient in 4 weeks. Wound Care: Remove gaurav, apply benzoin and steri strips. Activity Per routine post instructions. Please call in RX to patient pharmacy. Diet as tolerated Patient may shower or tub bathe as desired. Continue home meds Activity Activity as Tolerated: No Diet Discharge Diet: No Restrictions FROY RIVERA MD Apr 12, 2020 07:25
[2020-04-12 07:26] LABS: BASOPHILS % (AUTO) 0 % (0-10); EOSINOPHILS # (AUTO) 0.1 10^3/uL (0.0-0.3); EOSINOPHILS % (AUTO) 1 % (0-10); HEMATOCRIT 31 % (35-52); HEMOGLOBIN 9.9 g/dL (11.5-16.0); LYMPHOCYTES # (AUTO) 1.3 10^3/uL (1.0-4.0); LYMPHOCYTES % (AUTO) 17 % (12-44); MEAN CORPUSCULAR HEMOGLOBIN 31 pg (25-34); MEAN CORPUSCULAR HGB CONC 33 g/dL (32-36); MEAN CORPUSCULAR VOLUME 97 fL (80-99); MEAN PLATELET VOLUME 12.7 fL (9.0-12.2); MONOCYTES # (AUTO) 0.7 10^3/uL (0.0-1.0); MONOCYTES % (AUTO) 8 % (0-12); NEUTROPHILS # (AUTO) 5.8 10^3/uL (1.8-7.8); NEUTROPHILS % (AUTO) 73 % (42-75); PLATELET COUNT 78 10^3/uL (130-400)
[2020-04-12] MEDS ORDERED: fentaNYL INJECTION 100 MCG/2 ML AMP ONE (07:27)
[2020-04-12] MEDS ORDERED: NS (IVPB) 250 ML ONE (07:54)
[2020-04-12] MEDS ORDERED: OXYTOCIN PRE-MIX DRIP 1,000 ML IV ONE (08:43)
[2020-04-12] MEDS ORDERED: ROPIVACAINE 5MG/ML 30ML VIAL ONE (08:43)
[2020-04-12] MEDS ORDERED: MEASLES,MUMPS,RUBELLA 1 EA INJ SC ONE (09:00)
[2020-04-12] MEDS ORDERED: OXYTOCIN PRE-MIX DRIP 500 ML IV SCH (09:00)
[2020-04-12] MEDS ORDERED: DOCUSATE SODIUM 100 MG (COLACE) CAP PO SCH ×2 (09:00)
[2020-04-12] MEDS ORDERED: ONDANSETRON 4 MG/2 ML (SDV) Z0FRAN IVP PRN (09:00)
[2020-04-12] MEDS ORDERED: TETANUS,DIPTH,PERTUSS P/F (BOOSTRIX) 0.5 ML VIAL IM ONE (09:00)
[2020-04-12] MEDS: KETOROLAC 30 MG/ML VIAL IVP SCH ×3 (10:58→23:45)
[2020-04-12] MEDS ORDERED: IBUPROFEN 800 MG (MOTRIN) TAB PO SCH (12:00)
[2020-04-12] MEDS: oxyCODONE/APAP 10/325MG (PERCOCET 10) TABLET PO PRN ×3 (12:47→23:45)
--- NOTE | 2020-04-12 15:08 | OPERATIVE REPORT ---
DATE OF SERVICE: 04/12/2020 PREOPERATIVE DIAGNOSES: A 36-week and labor with gestational diabetes and previous C-sections x4. POSTOPERATIVE DIAGNOSES: A 36-week and labor with gestational diabetes and previous C-sections x4. OPERATIVE PROCEDURE: Repeat low transverse delivery of a viable male with Apgars pending and weight of 9 pounds 13 ounces, time of 0837. Cord blood pH is pending. OPERATIVE DESCRIPTION: With the patient in the supine position under satisfactory spinal analgesia, the patient was prepped and draped in the usual fashion for abdominal surgery. Rogers catheter was placed in the urinary bladder. A Pfannenstiel incision was made through skin with scalpel, the patient's abdomen entered in the usual manner. Bladder retractor placed in position, clean scalpel used to make a 4 cm hysterotomy incision transversely across the lower uterine segment that was extended by blunt dissection as well. Franklin forceps were applied to facilitate the delivery of a vigorous viable male with Apgars and stats as noted above. The was bulb suctioned on delivery of the head. A single nuchal cord was easily released. The delivery was completed atraumatically and the umbilical cord doubly clamped and cut and the infant passed to the pediatric nurse in attendance for delivery. Cord bloods were obtained. The placenta delivered spontaneously Kang. It was normal with a 3-vessel cord. The uterus was exteriorized and interior wiped clean with a wet laparotomy sponge. Uterine incision then closed with a running locked suture of 2-0 Vicryl. Hemostasis was complete. The uterus was returned to the abdominal cavity. All blood clot and debris removed from the abdominal cavity. With sponge and needle counts correct and hemostasis assured, the anterior parietal peritoneum was closed with running suture of 2-0 Vicryl. Rectus muscles were reapproximated with that suture as well. The rectus fascia was closed with 2-0 Vicryl, subcutaneous tissue was closed with 2-0 Vicryl and the skin was stapled. Sponge and needle counts were correct on completion of the procedure. Estimated blood loss was around 700 mL. The patient tolerated the procedure well and was transferred to recovery room in stable condition. The had been taken stable to the full term nursery under the care of Dr. Kendrick. Job ID: [id number] DocumentID: [id number] Dictated Date: 04/12/2020 09:01:45 Exchange Specialist Date: 04/12/2020 15:06:44 Dictated By: FROY RIVERA MD MTDD
[2020-04-13] MEDS: KETOROLAC 30 MG/ML VIAL IVP SCH (05:08)
[2020-04-13 05:11] VITALS: BP 111/75
[2020-04-13] MEDS: oxyCODONE/APAP 10/325MG (PERCOCET 10) TABLET PO PRN ×2 (05:12→14:27)
--- NOTE | 2020-04-13 08:26 | Progress Note ---
Standard Progress Note Progress Notes/Assess & Plan Date Seen by a Provider: Apr 13, 2020 Time Seen by a Provider: 08:23 Progress/Assessment & Plan This patient is without complaint. She is ambulating, voiding, tolerating oral intake well and has good pain control. Patient is aware that her test was positive for COVID-19. Patient is asymptomatic Vital Signs Date Time Temp Pulse Resp B/P (MAP) Pulse Ox O2 Delivery O2 Flow Rate FiO2 04/13/20 05:11 36.6 88 18 111/75 (87) 98 Room Air 04/12/20 23:46 36.6 91 18 124/86 (99) 99 04/12/20 19:33 37.0 82 18 117/80 (92) 98 Room Air 04/12/20 16:57 36.8 77 18 129/76 (93) Room Air 04/12/20 14:30 36.7 70 18 127/71 (89) 98 Room Air 04/12/20 10:15 69 18 133/67 (89) 100 Room Air 04/12/20 10:00 36.8 88 18 124/53 (76) 100 Room Air 04/12/20 09:55 36.3 14 122/75 (91) 100 Room Air 04/12/20 09:55 Room Air 04/12/20 09:50 14 122/75 (91) 100 Room Air 04/12/20 09:45 Room Air 04/12/20 09:40 14 105/69 (81) 100 Room Air 04/12/20 09:30 Room Air 04/12/20 09:30 16 99/69 (79) 98 Room Air 04/12/20 09:20 16 101/70 (80) 99 Room Air 04/12/20 09:15 Room Air 04/12/20 09:10 15 105/67 (80) 100 Room Air 04/12/20 09:02 36.2 16 105/63 (77) 94 Room Air 04/12/20 09:02 Room Air I & O 04/13/20 07:00 Intake Total 5550 ml Output Total 3400 ml Balance 2150 ml Vital signs are stable. Patient is afebrile. Physical exam accomplished by observation maintaining appropriate social distance and Abdomen is benign. The surgical incision is clean dry and intact. Extremities show no clubbing cyanosis. Assessment and plan postoperative day number 1 status post repeat delivery at 36 weeks gestation due to labor in a patient who is also a gestational diabetic with 4 previous C-sections and with a positive COVID-19 test on admission. Plan is for routine convalescence care. Incidentally baby had been transferred to [facility] where it is doing well Final Diagnosis 36 week repeat delivery FROY RIVERA MD Apr 13, 2020 08:26
--- NOTE | 2020-04-13 08:48 | Anesthesia-Regional Post-Op ---
Regional Patient Condition Mental Status: Alert, Oriented x3 Circulation: Same as Pre-Op Headache: Absent Sensation: Full Recovery Motor Block: Absent Post Op Complications Complications None Follow Up Care/Instructions Patient Instructions None needed. Anesthesia/Patient Condition Patient is doing well, no complaints, stable vital signs, no apparent adverse anesthesia problems. No complications reported per nursing. MARLEEN FLOR CRNA Apr 13, 2020 08:48
[2020-04-13 09:28] VITALS: BP 117/76
[2020-04-13 16:42] VITALS: BP 121/78
== END 2020-04-13 17:00 | disposition home or self-care (01) | DRG 786 ==
LOC: WSo 05:20 → LDRP 05:20 → WSo 05:21 → LDRP 05:21 → WSo 07:21 → LDRP 07:22 → OBSVTOIN 07:22 → UNDOADMOB 07:22 → INTOOBSV 07:22 → LDRP 11:05 → UNDODISIN 04-13 17:00 → EDSTATUS 04-17 14:50
PROVIDERS: ADMIT Obstetrics & Gynecology; ATTEND Obstetrics & Gynecology
PROC: 10D00Z1 Extraction of Products of Conception, Low, Open Approach (ICD-10-PCS; principal; 2020-04-12 08:13)
DX: O60.14X0 Preterm labor third trimester with preterm delivery third trimester, not applicable or unspecified (principal); U07.1 COVID-19; O98.52 Other viral diseases complicating childbirth; Z3A.36 36 weeks gestation of pregnancy; Z37.0 Single live birth; O24.425 Gestational diabetes mellitus in childbirth, controlled by oral hypoglycemic drugs; O34.211 Maternal care for low transverse scar from previous cesarean delivery
CPT/HCPCS: 36415; 81000; 82962; 85025; 86850; 86900; 86901; 87635; 88307; 90707; 94664; 99212